=== PATIENT | male | born 1940 | race Two or more races ===

== ENCOUNTER 2025-06-14 08:00 | Inpatient (IN) | payer OTHER ==
[~2025-06-14] VITALS: Ht 170.2 cm; Wt 76.2 kg
[~2025-06-14 08:00] MED LIST: AML5T GT; ASPI1TAB20 PO; ATOR10TA52 PO; BICA50TA42 PO; CHOL25CH3 PO; DONE6TAB PO; METO25TA93 PO; PYRI1TAB3 PO
[2025-06-14] MEDS: CIPROFLOXACIN 400MG/200ML 200 ML IV ONE (11:40)
[2025-06-14] MEDS ORDERED: PHENYLEPHRINE HCL 10 MG/ML VL ONE (11:45)
[2025-06-14] MEDS ORDERED: ETOMIDATE (2MG/ML) 20ML VIAL IV ONE (11:45)
[2025-06-14] MEDS ORDERED: fentaNYL CITRATE 100 MCG/2 ML VL ONE (11:45)
[2025-06-14] MEDS ORDERED: PROPOFOL 10 MG/ML 20 ML IV ONE (11:45)
[2025-06-14] MEDS ORDERED: LIDOCAINE 2% (LOCAL ANESTH.) PF 5ml SDV ONE (11:45)
[2025-06-14] MEDS ORDERED: ONDANSETRON HCL 4 MG/2 ML VIAL ONE (11:45)
[2025-06-14] MEDS ORDERED: GLYCOPYRROLATE 0.2 MG/ML 1ML VIAL ONE (11:45)
[2025-06-14] MEDS ORDERED: MEPERIDINE HCL (25 MG/ML) 1ML VIAL ONE ×2 (11:48→12:41)
[2025-06-14] MEDS ORDERED: KETAMINE 50mg/ML 10ml Vial 10 ML ONE (12:50)
[2025-06-14 13:51] VITALS: PULSE 83; RESP 12; O2SAT 98
--- NOTE | 2025-06-14 13:59 | DVHNC2 ---
Procedure - OPERATIVE REPORT Pre-op. Diagnosis: Bladder Lesion/tumors Post-op. Diagnosis: Same as pre-op diagnosis Operation: Transurethral resection of bladder tumor (TURBT) Anesthesia: General Indications: Patient with gross hematuria and bladder tumors noted on CT Scan. Indications, risks, complications, alternatives and benefits of transurethral resection of bladder tumor were discusse with the patient. All questions were encouraged and answered. Patient was aware of risks/complications including but not limited to infection, bleeding, bladder injury requiring additional procedures, injury to the ureteral orifices, urinary incontinence and possible need for additional procedures. Given these risks patient consented to proceed with the surgery. Details of Procedure: The patient was brought to the operating room and placed upon the table. After induction of anesthesia, patient was placed in the dorsal lithotomy position. Patient's genitalia and peritoneal regions were prepped and draped in standard surgical fashion. A rigid resectoscope was assembled and introduced into the urinary bladder. The entire contour of the bladder was evaluated. There were multi-focal tumors spanning the bladder neck, trigone, lateral and posterior aspect of the bladder. Using the loop electrocautery, I resected the bladder tumors in their entirety. The UO were not identifiable due to tumor involving the trigone. Lesion was > 5 cm in total surface area. Chips were then evacuated. Hemostasis was established and no bleeding was noted with inflow of irrigation stopped. At this point a 22Fr [address] way Mann Catheter was inserted and put to a leg bag. General anesthesia was reversed. The patient tolerated the procedure well and was then transferred to the recovery room in satisfactory condition. EBL - minimal/100 ml Specimens: Bladder Lesion/tumor Resection of bladder neck, bladder neck and prostate, trigone/posterior reese Complications: None Findings: Wide involvement of bladder tumors including the bladder neck/prostate urethra. VINNIE MACKAY MD Jun 14, 2025 13:59
[2025-06-14] MEDS ORDERED: HYDROmorphone HCL 2 MG/ML VL/or syr IV PRN (14:00)
[2025-06-14] MEDS ORDERED: MORPHINE SULFATE INJ 2 MG/ml SYRG IV PRN (14:00)
[2025-06-14] MEDS ORDERED: NITROGLYCERIN 0.4 MG SL TAB SL PRN (14:00)
[2025-06-14] MEDS: ACETAMINOPHEN IV 1000 MG/100ML (10MG/ML) IV ONE (14:32)
[2025-06-14 15:37] VITALS: RESP 16
[2025-06-14 16:58] VITALS: BP 134/76; PULSE 63; RESP 20; TEMP 97.3; O2SAT 94
[2025-06-14 20:00] VITALS: PULSE 72; PULSE 83; PULSE 94
[2025-06-14 21:16] VITALS: BP 118/70; PULSE 96; RESP 18; TEMP 97.3; O2SAT 95
[2025-06-15] VITALS (8 sets, daily range): BP systolic 112–152; BP diastolic 69–80; PULSE 70–96; RESP 16–19; TEMP 37.2; O2SAT 94–97
[2025-06-15 10:45] LABS: Hematocrit 38.6 % (41.0-53.0); Hemoglobin 13.2 g/dL (13.5-17.5); Mean Corpuscular Hemoglobin 30.3 pg (28.0-32.0); Mean Corpuscular Volume 88.7 fL (80.0-100.0); Nucleated Red Blood Cells % 0.0 %
[2025-06-15 11:04] LABS: Alanine Aminotransferase 18 U/L (7-40); Albumin 3.7 g/dL (3.2-4.8); Alkaline Phosphatase 75 U/L (46-116); Anion Gap 10 (5-15); BUN/Creatinine Ratio 13.1 (10.0-20.0); Calcium 9.1 mg/dL (8.7-10.4); Carbon Dioxide 25 mmol/L (20-31); Chloride 106 mmol/L (98-107); Potassium 4.4 mmol/L (3.5-5.1); Sodium 141 mmol/L (136-145); Total Protein 5.9 g/dL (5.7-8.2)
[2025-06-15 11:05] LABS: Bilirubin, Total 0.6 mg/dL (0.2-1.0); Blood Urea Nitrogen 24 mg/dL (9-23); Glucose 157 mg/dL (74-106)
--- NOTE | 2025-06-15 11:17 | DVHHP2 ---
History of Present Illness Reason for Visit: Hematuria History of Present Illness 84 year old male with bladder tumor admitted for bladder surgery by Dr. Tate Cardiovascular: CAD Renal/: Hematuria, Other (prostate and bladder CA) Past Surgical History: Cystoscopy Review of Systems Genitourinary: Hematuria Allergies: Coded Allergies: NO KNOWN ALLERGIES (Unverified , 06/12/25) Medications Current Medications Medications Dose Ordered Sig/Juancarlos Route Start Time Stop Time Status Last Admin Dose Admin Nitroglycerin 0.4 mg Q5MINP PRN SL 06/14/25 14:00 Morphine Sulfate 2 mg Q30M PRN IV 06/14/25 14:00 Exam Vital Signs Vital Signs Date Time Temp Pulse Resp B/P (MAP) Pulse Ox O2 Delivery O2 Flow Rate FiO2 06/15/25 08:35 98.4 83 18 133/74 (93) 96 98.4 06/15/25 08:06 Room Air* 0 21 General Appearance: Alert, Oriented X3, Cooperative, No acute distress Respiratory: Clear to auscultation, Normal air movement Cardiovascular: Regular rate, Normal S1, Normal S2 Abdominal: Normal bowel sounds, Soft, No tenderness Extremities: No edema Labs/Xrays Labs Test 06/15/25 10:26 Range/Units White Blood Count 17.3 H 4.4-10.8 10^3/uL Red Blood Count 4.35 L 4.5-5.90 10^6/uL Hemoglobin 13.2 L 13.5-17.5 g/dL Hematocrit 38.6 L 41.0-53.0 % Mean Corpuscular Volume 88.7 80.0-100.0 fL Mean Corpuscular Hemoglobin 30.3 28.0-32.0 pg Mean Corpuscular Hemoglobin Concent 34.1 32.0-36.0 g/dL Red Cell Distribution Width 13.1 11.8-14.3 % Platelet Count 201 140-450 10^3/uL Mean Platelet Volume 7.1 6.9-10.8 fL Neutrophils (%) (Auto) 88.6 H 37.0-80.0 % Lymphocytes (%) (Auto) 4.3 L 10.0-50.0 % Monocytes (%) (Auto) 7.1 0.0-12.0 % Eosinophils (%) (Auto) 0.0 0.0-7.0 % Basophils (%) (Auto) 0.0 0.0-2.0 % Neutrophils # (Auto) 15.3 H 1.6-8.6 10 ^3/uL Lymphocytes # (Auto) 0.7 0.4-5.4 10 ^3/uL Monocytes # (Auto) 1.2 0-1.3 10 ^3/uL Eosinophils # (Auto) 0 0-0.8 10 ^3/uL Basophils # (Auto) 0 0-0.2 10 ^3/uL Nucleated Red Blood Cells 0.0 % Sodium Level 141 136-145 mmol/L Potassium Level 4.4 3.5-5.1 mmol/L Chloride Level 106 98-107 mmol/L Carbon Dioxide Level 25 20-31 mmol/L Anion Gap 10 5-15 Blood Urea Nitrogen 24 H 9-23 mg/dL Creatinine 1.83 H 0.700-1.30 mg/dL Glomerular Filtration Rate Calc 36 >90 mL/min BUN/Creatinine Ratio 13.1 10.0-20.0 Serum Glucose 157 H 74-106 mg/dL Calcium Level 9.1 8.7-10.4 mg/dL Total Bilirubin 0.6 0.2-1.0 mg/dL Aspartate Amino Transferase (AST) 24 13-40 U/L Alanine Aminotransferase (ALT) 18 7-40 U/L Alkaline Phosphatase 75 46-116 U/L Total Protein 5.9 5.7-8.2 g/dL Albumin 3.7 3.2-4.8 g/dL SEPSIS Sepsis Screen Vital Signs Date Time Temp Pulse Resp B/P (MAP) Pulse Ox O2 Delivery O2 Flow Rate FiO2 06/15/25 08:35 98.4 83 18 133/74 (93) 96 98.4 06/15/25 08:06 96 16 Room Air* 0 21 06/15/25 05:17 97.9 92 18 112/74 (87) 96 97.9 Laboratory Tests Test 06/15/25 10:26 White Blood Count 17.3 10^3/uL (4.4-10.8) H Assessment/Plan Assessment/Plan Day #1 post op TURBT CAD with h/o stents h/o prosate CA HTN PLAN: CBI per Dr. Harlan Tate Hold aspirin Resume other home meds Monitor BP Watch closely Full code Advanced directives discussed x 15 minutes Plan discussed with: Patient, Spouse Date of Service: Jun 15, 2025 Billing Provider: MATTY AUGUSTIN MD Common Visit Codes: 08026-YRRXNXK INP/OBS CARE (HIGH) Secondary Visit Codes: 04546-[id number] CARE PLAN 30 MINUTES MATTY AUGUSTIN MD Jun 15, 2025 11:17
--- NOTE | 2025-06-15 15:58 | DVHDS2 ---
New Physician D'charge PN Admitting Diagnosis Admitting Diagnosis Gross hematuria Bladder mass Discharge Diagnosis Same Operations or Procedures TURBT, extensive Reason(s) For Hospitalization Surgery Extensive involvement of the bladder with bladder cancer. Resection time was prolonged and he required continuous bladder irrigation postoperatively Hospital Course Postop day 1., urine is clear on minimal CBI Treatment Plan Discharge home with Mann to leg bag drainage Complications None Condition of Discharge Good Disposition Home Discharge Instructions Diet: Regular Activity: Light activity Activity comment: Mann catheter management Medications: Given Follow Up Care Follow Up/Referral: Mann removal on Tuesday Discharge Statement: "Patient was advised to return to the ER or call 911 if any headaches, dizziness, shortness of breath, chest pain, abdominal pain, bleeding, fevers, or worsening of medical condition. Patient was counseled about treatment plan, medications, possible side effects, patientverbalized understanding. All questions were answered to the best of my ability. This discharge took greater then 30 minutes in planning, reviewing documentation, counseling the patient, and discussing with other team members." VINNIE MACKAY MD Jun 15, 2025 15:58
[2025-06-15] MEDS ORDERED: ATORVASTATIN 20 MG TAB PO SCH (22:00)
[2025-06-16] MEDS ORDERED: METOPROLOL SUCCINATE XL 50 MG TAB PO SCH (10:00)
== END 2025-06-15 18:49 | disposition home or self-care (01) | DRG 670 ==
LOC: SUR 08:00 → OVERFLOW 13:50 → CENTRAL 15:05
PROVIDERS: ADMIT Urology; ATTEND Urology
PROC: 0TBC8ZZ Excision of Bladder Neck, Via Natural or Artificial Opening Endoscopic (ICD-10-PCS; principal; 2025-06-14 11:40)
DX: C67.9 Malignant neoplasm of bladder, unspecified (principal); D49.4 Neoplasm of unspecified behavior of bladder; I10 Essential (primary) hypertension; I25.10 Atherosclerotic heart disease of native coronary artery without angina pectoris; N32.9 Bladder disorder, unspecified; Z79.899 Other long term (current) drug therapy
CPT/HCPCS: 36415; 80053; 85025; G0378; J0131; J2003; J2405; J2704